=== PATIENT | male | born 1970 | race Caucasian/White ===

== ENCOUNTER 2019-01-03 08:40 | Emergency (ER) | payer SELFPAY ==
[2019-01-03] MEDS ORDERED: LIDOCAINE 1% MPF 5 ML VIAL ONE (09:24)
--- NOTE | 2019-01-03 10:01 | ER ---
Nurse's Notes [facility] Name: Cory Yarbrough Age: 48 yrs Sex: Male : 1970 Arrival Date: 01/03/2019 Time: 08:43 Bed 17 Private MD: Diagnosis: Hand Laceration Presentation: 01/03 09:01 Presenting complaint: Presenting complaint: Patient states: pocket knife slipped, iw punctured left hand in spacing between thumb and finger. 09:02 Transition of care: patient was not received from another setting of care. Complicating iw Factors: There are no complicating factors for this patient. Onset of symptoms was January 03, 2019. Risk Assessment: Do you want to hurt yourself or someone else? Patient reports no desire to harm self or others. Initial Sepsis Screen: Does the patient meet any 2 criteria? No. Patient's initial sepsis screen is negative. Does the patient have a suspected source of infection? No. Patient's initial sepsis screen is negative. Care prior to arrival: None. 09:02 Method Of Arrival: Ambulatory iw 09:02 Acuity: LETY 4 iw Historical: - Allergies: 09:04 Epinephrine; iw - Home Meds: 09:04 None [Active]; iw - PMHx: 09:04 None; iw - PSHx: 09:04 left hand; leg surgery; iw - Immunization history:: Adult Immunizations up to date, Last tetanus immunization: < 5 years ago. - Social history:: Smoking status: Patient uses tobacco products. - Ebola Screening: : Patient negative for fever greater than or equal to 101.5 degrees Fahrenheit, and additional compatible Ebola Virus Disease symptoms Patient denies exposure to infectious person Patient denies travel to an Ebola-affected area in the 21 days before illness onset No symptoms or risks identified at this time. Screenin:11 Abuse screen: Denies threats or abuse. Nutritional screening: No deficits noted. em Tuberculosis screening: No symptoms or risk factors identified. Fall Risk None identified. Assessment: 09:12 General: Appears in no apparent distress. comfortable, Behavior is calm, cooperative, em Denies fever. Pain: Complains of pain in Left first web space Pain currently is 3 out of 10 on a pain scale. Neuro: Level of Consciousness is awake, alert, obeys commands, Oriented to person, place, time, situation, Appropriate for age. Cardiovascular: Capillary refill < 3 seconds Patient's skin is warm and dry. Respiratory: Airway is patent Respiratory effort is even, unlabored, Respiratory pattern is regular, symmetrical. Derm: Skin is intact, is healthy with good turgor, Skin is pink, warm \T\ dry. Musculoskeletal: Circulation, motion, and sensation intact. Capillary refill < 3 seconds, Range of motion: intact in all extremities. Injury Description: Laceration sustained to Left first web space is clean, jagged, 0.5 to 2.5 cm long, not bleeding, was sustained 30-60 minutes ago. is bleeding a small amount. 10:06 Reassessment: PT D/C HOME AMBULATORY, DX WITH HAND LACERATION. bp Vital Signs: 09:05 BP 158 / 98; Pulse 84; Resp 16; Temp 98.3; Pulse Ox 100% on R/A; Weight 117.48 kg; iw Height 6 ft. 2 in. (187.96 cm); Pain 3/10; 09:05 Body Mass Index 33.25 (117.48 kg, 187.96 cm) iw ED Course: 08:43 Patient arrived in ED. mr 09:03 Lc Pinto LVN is Primary Nurse. em 09:04 Triage completed. iw 09:05 Arm band placed on. iw 09:11 Patient has correct armband on for positive identification. Bed in low position. Call em light in reach. Side rails up X2. 09:16 Ward Rayo PA is PHCP. [facility] 09:16 John Delaney MD is Attending Physician. jm 09:30 Assist provider with laceration repair on left hand that was 2.5 cm. or less using bp sutures. Set up tray. Performed by Ward BELLAMY Dressed with Neosporin, Patient tolerated well. 10:05 Patient did not have IV access during this emergency room visit. bp Administered Medications: 09:50 Drug: Lidocaine (1 %) 5 ml Volume: 20 ml; Route: Infiltration; em Outcome: 09:59 Discharge ordered by . jmm 10:06 Discharged to home ambulatory. bp 10:06 Condition: stable 10:06 Discharge instructions given to patient, Instructed on discharge instructions, follow up and referral plans. wound care, Demonstrated understanding of instructions, follow-up care, wound care. 10:07 Patient left the ED. bp Signatures: Ward Rayo PA PA [facility] Aguilar, Brandi mr Blair, Lc, FORESTRY BIOLOGY SPECIALIST FORESTRY BIOLOGY SPECIALIST Alice Orozco RN RN Henrry Joyce RN RN bp Corrections: (The following items were deleted from the chart) 09:04 09:01 Presenting complaint: [facility]
--- NOTE | 2019-01-03 10:01 | EDPHYS ---
Physician Documentation [facility] Name: Cory Yarbrough Age: 48 yrs Sex: Male : 1970 Arrival Date: 01/03/2019 Time: 08:43 Bed 17 Private MD: ED Physician John Delaney HPI: 01/03 09:24 This 48 yrs old Male presents to ER via Ambulatory with complaints of jmm Laceration To Hand. 09:24 The patient has a laceration related to: a puncture wound occurred at home. Onset: The jmm symptoms/episode began/occurred acutely, just prior to arrival. This is a 48 year old male with no chronic medical conditions that presents to the ED with complaints of left hand pain after accidently stabbing his left hand while cutting a wire. Denies other injury. Tetanus is not UTD. Historical: - Allergies: 09:04 Epinephrine; iw - Home Meds: 09:04 None [Active]; iw - PMHx: 09:04 None; iw - PSHx: 09:04 left hand; leg surgery; iw - Immunization history:: Adult Immunizations up to date, Last tetanus immunization: < 5 years ago. - Social history:: Smoking status: Patient uses tobacco products. - Ebola Screening: : Patient negative for fever greater than or equal to 101.5 degrees Fahrenheit, and additional compatible Ebola Virus Disease symptoms Patient denies exposure to infectious person Patient denies travel to an Ebola-affected area in the 21 days before illness onset No symptoms or risks identified at this time. ROS: 09:24 Constitutional: Negative for fever, chills, and weight loss, Cardiovascular: Negative jmm for chest pain, palpitations, and edema, Respiratory: Negative for shortness of breath, cough, wheezing, and pleuritic chest pain. 09:24 MS/extremity: Positive for 09:24 All other systems are negative. Exam: 09:25 Constitutional: This is a well developed, well nourished patient who is awake, alert, jmm and in no acute distress. Head/Face: atraumatic. Eyes: EOMI, no conjunctival erythema appreciated ENT: Moist Mucus Membranes Neck: Trachea midline, Supple Chest/axilla: Normal chest wall appearance and motion. Cardiovascular: Regular rate and rhythm. No edema appreciated Respiratory: Normal respirations, no respiratory distress appreciated Abdomen/GI: Non distended, soft Back: Normal ROM 09:25 Musculoskeletal/extremity: FROM appreciated to the left hand against resistence. [facility] 09:25 Skin: 1.5 cm laceration noted to the 1st web space of the dorsum of the left hand. 09:25 Neuro: Orientation: is normal, Mentation: is normal, Memory: is normal. 09:25 Psych: Behavior/mood is pleasant, cooperative. Vital Signs: 09:05 BP 158 / 98; Pulse 84; Resp 16; Temp 98.3; Pulse Ox 100% on R/A; Weight 117.48 kg; iw Height 6 ft. 2 in. (187.96 cm); Pain 3/10; 09:05 Body Mass Index 33.25 (117.48 kg, 187.96 cm) iw Laceration: 09:58 Wound Repair of 2cm ( 0.8in ) subcutaneous laceration to Left first web space. Distal jmm neuro/vascular/tendon intact. Anesthesia: Local anesthetic administered with 2 mls of 1% lidocaine. Wound prep: Simple cleansing with betadine by me. Skin closed with 3 4-0 Prolene using simple sutures and sterile technique. Patient tolerated well. MDM: 09:24 Patient medically screened. [facility] 09:58 Data reviewed: vital signs, nurses notes. Counseling: I had a detailed discussion with kristel the patient and/or guardian regarding: the historical points, exam findings, and any diagnostic results supporting the discharge/admit diagnosis, the need for outpatient follow up, to return to the emergency department if symptoms worsen or persist or if there are any questions or concerns that arise at home. ED course: Patient given wound infection return precautions. . Administered Medications: 09:50 Drug: Lidocaine (1 %) 5 ml Volume: 20 ml; Route: Infiltration; em Disposition: 16:38 Co-signature as Attending Physician, John Delaney MD I agree with the assessment and kdr plan of care. Disposition: 01/03/19 09:59 Discharged to Home. Impression: Hand Laceration. - Condition is Stable. - Discharge Instructions: Laceration Care, Adult. - Medication Reconciliation Form, Thank You Letter, Antibiotic Education, Prescription Opioid Use form. - Follow up: Private Physician; When: 1 week; Reason: Recheck today's complaints, Continuance of care, Staple/Suture removal, Re-evaluation by your physician. Signatures: John Delaney MD MD kdr Mickail, Joel, PA PA russm Lc Pinto, ONCOLOGY ADMIN ONCOLOGY ADMIN em Alice Serrato, MARTIN RN iw Henrry Shea, MARTIN RN bp Corrections: (The following items were deleted from the chart) 10:07 09:59 01/03/2019 09:59 Discharged to Home. Impression: Hand Laceration. Condition is bp Stable. Forms are Medication Reconciliation Form, Thank You Letter, Antibiotic Education, Prescription Opioid Use. Follow up: Private Physician; When: 1 week; Reason: Recheck today's complaints, Continuance of care, Staple/Suture removal, Re-evaluation by your physician. simi
[2019-01-03 10:13] VITALS: BP 158/98; TEMP 98.3; O2SAT 100
== END 2019-01-03 10:07 | disposition home or self-care (01) ==
LOC: ER 08:40
PROC: 0JQK0ZZ Repair Left Hand Subcutaneous Tissue and Fascia, Open Approach (ICD-10-PCS; principal; 2019-01-03)
DX: S61.412A Laceration without foreign body of left hand, initial encounter (principal); W45.8XXA Other foreign body or object entering through skin, initial encounter; Y93.89 Activity, other specified; Y92.009 Unspecified place in unspecified non-institutional (private) residence as the place of occurrence of the external cause; Z88.8 Allergy status to other drugs, medicaments and biological substances; Z72.0 Tobacco use
CPT/HCPCS: 99283

== ENCOUNTER 2020-02-23 15:25 | Emergency (ER) | payer OTHER, SELFPAY ==
--- NOTE | 2020-02-23 17:23 | RAD REPORT ---
EXAM DESCRIPTION: Ambrosio Single View02/23/2020 5:05 pm CLINICAL HISTORY: Chest pain COMPARISON: none FINDINGS: The lungs appear clear of acute infiltrate. The heart is normal size IMPRESSION: No acute abnormalities displayed
[2020-02-23] MEDS ORDERED: ASPIRIN 81 MG CHEWABLE TABLET ONE (17:28)
[2020-02-23] MEDS ORDERED: METOPROLOL TAR 50 MG TAB ONE (17:29)
[2020-02-23] MEDS ORDERED: lisinopriL 10 MG TAB ONE ×2 (17:29→18:58)
[2020-02-23 17:44] LABS: Basophils % 0.8 % (0-1.3); Hematocrit 46.7 % (39.6-49.0); Lymphocytes % 25.7 % (15.3-44.8); MPV 7.8 fL (7.6-11.3); RBC Red Blood Cell Count 5.35 M/uL (4.33-5.43)
[2020-02-23 17:47] LABS: Protime INR 0.91
[2020-02-23 17:57] LABS: Urine Blood 2+ (NEG); Urine Glucose NEGATIVE (NEG); Urine Protein NEGATIVE (NEG); Urine Specific Gravity 1.025 (1.005-1.030)
[2020-02-23 18:07] LABS: ALT/SGPT 31 U/L (12-78); AST/SGOT 23 U/L (15-37); Albumin 4.2 g/dL (3.4-5.0); Alkaline Phosphatase 99 U/L (45-117); BUN Blood Urea Nitrogen 17 mg/dL (7-18); Bicarbonate 28 mmol/L (21-32); Bilirubin Direct 0.1 mg/dL (0-0.2); Bilirubin Total 0.5 mg/dL (0.2-1.0); Glucose Level 76 mg/dL (74-106); Magnesium 2.3 mg/dL (1.8-2.4); NT PRO-BNP 63 pg/mL (<125); Protein, Total 8.4 g/dL (6.4-8.2); Sodium Level 139 mmol/L (136-145); Troponin (Emerg Dept Use Only) < 0.02 ng/mL (0.0-0.045)
--- NOTE | 2020-02-23 18:22 | EDPHYS ---
Physician Documentation [facility] Name: Cory Yarbrough Age: 49 yrs Sex: Male : 1970 Arrival Date: 02/23/2020 Time: 15:27 Bed 23 Private MD: FABY Physician Bobby Lemus HPI: 02/22 16:47 This 49 yrs old Male presents to ER via Ambulatory with complaints of Chest giancarlo Pain, High Blood Pressure. 16:47 The patient or guardian reports chest pain that is located primarily in the substernal giancarlo area, anterior chest wall, bilaterally. Onset: just prior to arrival, yesterday. The pain does not radiate. Associated signs and symptoms: The patient has no apparent associated signs or symptoms. The chest pain is described as a pressure. Modifying factors: The symptoms are alleviated by nothing. the symptoms are aggravated by nothing. Severity of pain: At its worst the pain was mild in the emergency department the pain has resolved. The patient has experienced similar episodes in the past, several times. Historical: - Allergies: 15:30 Epinephrine; ss - Home Meds: 15:30 None [Active]; ss - PMHx: 15:30 "cardiac events"; ss - PSHx: 15:30 left hand; leg surgery; ss - Immunization history:: Adult Immunizations up to date. - Social history:: Smoking status: Patient reports the use of cigarette tobacco products, smokes one pack cigarettes per day. - Family history:: not pertinent. ROS: 16:47 Constitutional: Negative for fever, chills, and weight loss, Eyes: Negative for injury, giancarlo pain, redness, and discharge, ENT: Negative for injury, pain, and discharge, Neck: Negative for injury, pain, and swelling, Cardiovascular: Negative for chest pain, palpitations, and edema, Respiratory: Negative for shortness of breath, cough, wheezing, and pleuritic chest pain, Abdomen/GI: Negative for abdominal pain, nausea, vomiting, diarrhea, and constipation, Back: Negative for injury and pain, : Negative for injury, bleeding, discharge, and swelling, MS/Extremity: Negative for injury and deformity, Skin: Negative for injury, rash, and discoloration, Neuro: Negative for headache, weakness, numbness, tingling, and seizure, Psych: Negative for depression, anxiety, suicide ideation, homicidal ideation, and hallucinations, Allergy/Immunology: Negative for hives, rash, and allergies, Endocrine: Negative for neck swelling, polydipsia, polyuria, polyphagia, and marked weight changes, Hematologic/Lymphatic: Negative for swollen nodes, abnormal bleeding, and unusual bruising. Exam: 16:47 Constitutional: This is a well developed, well nourished patient who is awake, alert, giancarlo and in no acute distress. Head/Face: Normocephalic, atraumatic. Eyes: Pupils equal round and reactive to light, extra-ocular motions intact. Lids and lashes normal. Conjunctiva and sclera are non-icteric and not injected. Cornea within normal limits. Periorbital areas with no swelling, redness, or edema. ENT: Nares patent. No nasal discharge, no septal abnormalities noted. Tympanic membranes are normal and external auditory canals are clear. Oropharynx with no redness, swelling, or masses, exudates, or evidence of obstruction, uvula midline. Mucous membranes moist. Neck: Trachea midline, no thyromegaly or masses palpated, and no cervical lymphadenopathy. Supple, full range of motion without nuchal rigidity, or vertebral point tenderness. No Meningismus. Chest/axilla: Normal chest wall appearance and motion. Nontender with no deformity. No lesions are appreciated. Cardiovascular: Regular rate and rhythm with a normal S1 and S2. No gallops, murmurs, or rubs. Normal PMI, no JVD. No pulse deficits. Respiratory: Lungs have equal breath sounds bilaterally, clear to auscultation and percussion. No rales, rhonchi or wheezes noted. No increased work of breathing, no retractions or nasal flaring. Abdomen/GI: Soft, non-tender, with normal bowel sounds. No distension or tympany. No guarding or rebound. No evidence of tenderness throughout. Back: No spinal tenderness. No costovertebral tenderness. Full range of motion. Male : Normal genitalia with no discharge or lesions. Skin: Warm, dry with normal turgor. Normal color with no rashes, no lesions, and no evidence of cellulitis. MS/ Extremity: Pulses equal, no cyanosis. Neurovascular intact. Full, normal range of motion. Neuro: Awake and alert, GCS 15, oriented to person, place, time, and situation. Cranial nerves II-XII grossly intact. Motor strength 5/5 in all extremities. Sensory grossly intact. Cerebellar exam normal. Normal gait. Psych: Awake, alert, with orientation to person, place and time. Behavior, mood, and affect are within normal limits. 16:47 Musculoskeletal/extremity: DVT Exam: No signs of deep vein thrombosis. no pain, no swelling, no tenderness, negative Homans' sign noted on exam, no appreciated bluish discoloration, no erythema, no increased warmth. 16:56 ECG was reviewed by the Attending Physician. giancarlo Vital Signs: 15:30 BP 174 / 138; Pulse 72; Resp 18; Temp 97.8; Pulse Ox 100% on R/A; Height 6 ft. 2 in. ss (187.96 cm); Pain 6/10; 15:36 BP 170 / 113; ss 17:20 BP 164 / 117; Pulse 71; Resp 16; Pulse Ox 100% on R/A; vg1 18:00 BP 141 / 110; Pulse 60; Resp 16; Pulse Ox 99% on R/A; vg1 MDM: 16:41 Patient medically screened. giancarlo 16:51 Differential diagnosis: abnormal EKG, acute myocardial infarction, chest wall pain, giancarlo costochondritis, pleurisy, pneumonia, stable angina, unstable angina. HEART Score: History: Slightly Suspicious (0), ECG: Normal (0), Age: > 45 and < 65 years (1), Risk Factors: > or = 3 Risk factors for atherosclerotic disease (2), [Hypercholesterolemia] [Hypertension] [Active Smoker] [+ Family HX] [Obesity] Troponin: < or = 1 x Normal Limit (0). The patient was given aspirin in the Emergency Department. The patient's deep vein thrombosis risk score was calculated as follows: Total Score: 0. This patient was found to be at low risk for a deep vein thrombosis by using the Well's assessment criteria. The patient's pulmonary embolism risk score was calculated as follows: Total Score: 0-2 points. This patient was found to be at low risk for a pulmonary embolism by using the Well's assessment criteria. ANKIT Risk Score: 1 - Three or more CAD risk factors, 1- Known CAD, TOTAL SCORE = 2. Data reviewed: vital signs, nurses notes, lab test result(s), EKG, radiologic studies, plain films. Data interpreted: frame stripper and crusher: rate is 72 beats/min, rhythm is regular, Pulse oximetry: on room air is 100 %. Test interpretation: by ED physician or midlevel provider: ECG, plain radiologic studies. 02/22 16:47 Order name: Basic Metabolic Panel; Complete Time: 18:12 [facility] 02/22 16:47 Order name: CBC with Diff; Complete Time: 18:12 [facility] 02/22 16:47 Order name: LFT's; Complete Time: 18:12 [facility] 02/22 16:47 Order name: Magnesium; Complete Time: 18:12 [facility] 02/22 16:47 Order name: NT PRO-BNP; Complete Time: 18:12 [facility] 02/22 16:47 Order name: PT-INR; Complete Time: 18:12 [facility] 02/22 16:47 Order name: Troponin (emerg Dept Use Only); Complete Time: 18:12 [facility] 02/22 16:47 Order name: XRAY Chest (1 view); Complete Time: 17:29 [facility] 02/22 17:54 Order name: Urine Dipstick--Ancillary (enter results); Complete Time: 18:12 02/22 15:35 Order name: EKG; Complete Time: 15:36 02/22 15:35 Order name: EKG - Nurse/Tech; Complete Time: 15:35 02/22 16:47 Order name: Cardiac monitoring; Complete Time: 17:45 [facility] 02/22 16:47 Order name: IV Saline Lock; Complete Time: 17:45 [facility] 02/22 16:47 Order name: Labs collected and sent; Complete Time: 17:45 [facility] 02/22 16:47 Order name: O2 Per Protocol; Complete Time: 17:02 [facility] 02/22 16:47 Order name: O2 Sat Monitoring; Complete Time: 17:02 [facility] 02/22 16:47 Order name: Urine Dipstick-Ancillary (obtain specimen); Complete Time: 17:45 [facility] EC:56 Rate is 71 beats/min. Rhythm is regular. QRS [place] is Normal. MI interval is normal. QRS giancarlo interval is normal. QT interval is normal. No Q waves. T waves are Normal. No ST changes noted. Clinical impression: Normal ECG and No evidence of ischemia. Interpreted by me. Reviewed by me. Administered Medications: 17:25 Drug: Lopressor (metoprolol TARTRATE) 50 mg Route: PO; vg1 18:56 Follow up: Response: No adverse reaction; Marked relief of symptoms vg1 17:25 Drug: Aspirin Chewable Tablet 324 mg Route: PO; vg1 18:56 Follow up: Response: No adverse reaction vg1 17:25 Drug: Lisinopril 10 mg Route: PO; vg1 18:56 Follow up: Response: Marked relief of symptoms vg1 18:49 CANCELLED (HR 55. Provider notified.): Lopressor 5 mg IVP once; Hold for SBP <100 or HR vg1 <60. 18:55 Drug: Lisinopril 10 mg Route: PO; vg1 18:55 Follow up: Response: Medication administered at discharge. vg1 Disposition: 02/23/20 18:20 Discharged to Home. Impression: Chest pain, unspecified, Essential (primary) hypertension, Tobacco abuse counseling, Tobacco use. - Condition is Stable. - Discharge Instructions: Hypertension, Steps to Quit Smoking, Smoking Hazards, Nonspecific Chest Pain, [id number], Hypertension, [id number], Aspirin and Your Heart, Managing Your Hypertension. - Prescriptions for Lopressor 50 mg Oral Tablet - take 1 tablet by ORAL route every 12 hours; 30 tablet. Lisinopril 20 mg Oral Tablet - take 1 tablet by ORAL route once daily; 20 tablet. - Medication Reconciliation Form, Thank You Letter, Antibiotic Education, Prescription Opioid Use form. - Follow up: Private Physician; When: 2 - 3 days; Reason: Recheck today's complaints, Continuance of care, Re-evaluation by your physician. Follow up: Jakub Acevedo; When: 2 - 3 days; Reason: Recheck today's complaints, Re-evaluation by your physician. - Problem is new. - Symptoms have improved. Signatures: Dispatcher [employer] [facility] Bobby Lemus MD MD cha Smirch, Shelby, RN RN July Odom RN RN vg1 Corrections: (The following items were deleted from the chart) 18:49 18:13 Lopressor 5 mg IVP once; Hold for SBP <100 or HR <60. ordered. giancarlo vg1 18:49 18:49 Lopressor 5 mg IVP once; Hold for SBP <100 or HR <60. ordered. vg1 vg1 18:57 18:20 02/23/2020 18:20 Discharged to Home. Impression: Chest pain, unspecified; vg1 Essential (primary) hypertension; Tobacco abuse counseling; Tobacco use. Condition is Stable. Discharge Instructions: Hypertension, Steps to Quit Smoking, Smoking Hazards, Nonspecific Chest Pain, [id number], Hypertension, [id number], Aspirin and Your Heart, Managing Your Hypertension. Prescriptions for Lopressor 50 mg Oral Tablet - take 1 tablet by ORAL route every 12 hours; 30 tablet, Lisinopril 20 mg Oral Tablet - take 1 tablet by ORAL route once daily; 20 tablet. and Forms are Medication Reconciliation Form, Thank You Letter, Antibiotic Education, Prescription Opioid Use. Follow up: Private Physician; When: 2 - 3 days; Reason: Recheck today's complaints, Continuance of care, Re-evaluation by your physician. Follow up: Jakub Acevedo; When: 2 - 3 days; Reason: Recheck today's complaints, Re-evaluation by your physician. Problem is new. Symptoms have improved. giancarlo
--- NOTE | 2020-02-23 18:22 | ER ---
Nurse's Notes [facility] Name: Cory Yarbrough Age: 49 yrs Sex: Male : 1970 Arrival Date: 02/23/2020 Time: 15:27 Bed 23 Private MD: Diagnosis: Chest pain, unspecified;Essential (primary) hypertension;Tobacco abuse counseling;Tobacco use Presentation: 02/22 15:28 Chief complaint: Patient states: "I was in my doctor's office and my blood pressure was ss high so they wanted me to come over because of the chest pains I've been having." Pt c/o CP that began a week ago. Coronavirus screen: Client denies travel out of the [place] in the last 14 days. Ebola Screen: Patient denies exposure to infectious person. Patient denies travel to an Ebola-affected area in the 21 days before illness onset. Initial Sepsis Screen: Does the patient meet any 2 criteria? No. Patient's initial sepsis screen is negative. Does the patient have a suspected source of infection? No. Patient's initial sepsis screen is negative. Risk Assessment: Do you want to hurt yourself or someone else? Patient reports no desire to harm self or others. Onset of symptoms was February 16, 2020. 15:28 Method Of Arrival: Ambulatory 15:28 Acuity: LETY 3 ss Historical: - Allergies: 15:30 Epinephrine; ss - Home Meds: 15:30 None [Active]; ss - PMHx: 15:30 "cardiac events"; ss - PSHx: 15:30 left hand; leg surgery; ss - Immunization history:: Adult Immunizations up to date. - Social history:: Smoking status: Patient reports the use of cigarette tobacco products, smokes one pack cigarettes per day. - Family history:: not pertinent. Screenin:15 Abuse screen: Denies threats or abuse. Nutritional screening: No deficits noted. vg1 Tuberculosis screening: No symptoms or risk factors identified. Fall Risk None identified. Assessment: 17:15 General: Appears in no apparent distress. comfortable, Behavior is calm, cooperative. vg1 17:15 Pain: Complains of pain in chest and head Pain radiates to back Pain currently is 4 out vg1 of 10 on a pain scale. Pain began about a week. Neuro: Level of Consciousness is awake, alert, obeys commands, Oriented to person, place, time, situation. Cardiovascular: Heart tones S1 S2 Pulses are palpable in right radial artery and left radial artery Chest pain Patient states chest pain is 4/10 and states it feels more like pressure.. Respiratory: Airway is patent Respiratory effort is even, unlabored, Respiratory pattern is regular, symmetrical. GI: No signs and/or symptoms were reported involving the gastrointestinal system. : No signs and/or symptoms were reported regarding the genitourinary system. EENT: No signs and/or symptoms were reported regarding the EENT system. Derm: Skin is intact, is healthy with good turgor. Musculoskeletal: Circulation, motion, and sensation intact. 18:15 Reassessment: Patient appears in no apparent distress at this time. Patient and/or vg1 family updated on plan of care and expected duration. Pain level reassessed. Patient is alert, oriented x 3, equal unlabored respirations, skin warm/dry/pink. Patient denies pain at this time. Patient states feeling better. Vital Signs: 15:30 BP 174 / 138; Pulse 72; Resp 18; Temp 97.8; Pulse Ox 100% on R/A; Height 6 ft. 2 in. ss (187.96 cm); Pain 6/10; 15:36 BP 170 / 113; ss 17:20 BP 164 / 117; Pulse 71; Resp 16; Pulse Ox 100% on R/A; vg1 18:00 BP 141 / 110; Pulse 60; Resp 16; Pulse Ox 99% on R/A; vg1 ED Course: 15:27 Patient arrived in ED. ag5 15:29 Triage completed. ss 15:30 Arm band placed on right wrist. ss 16:41 Bobby Lemus MD is Attending Physician. giancarlo 16:43 July Stephenson, MARTIN is Primary Nurse. vg1 17:06 XRAY Chest (1 view) In Process Unspecified. EDMS 17:15 Patient has correct armband on for positive identification. Bed in low position. Call vg1 light in reach. Side rails up X 1. residential monitor on. Pulse ox on. NIBP on. 17:15 Patient maintains SpO2 saturation greater than 95% on room air. vg1 17:20 Inserted saline lock: 20 gauge in right antecubital area, using aseptic technique. vg1 Blood collected. Flushed right antecubital with 5 ml normal saline. 17:20 Initial lab(s) drawn, by or, sent to lab. vg1 17:35 Urine collected: clean catch specimen, clear, collin colored. jp3 18:20 Jakub Acevedo MD is Referral Physician. [facility] 18:50 No provider procedures requiring assistance completed. vg1 18:50 IV discontinued, intact, bleeding controlled, No redness/swelling at site. Pressure vg1 dressing applied. Administered Medications: 17:25 Drug: Lopressor (metoprolol TARTRATE) 50 mg Route: PO; vg1 18:56 Follow up: Response: No adverse reaction; Marked relief of symptoms vg1 17:25 Drug: Aspirin Chewable Tablet 324 mg Route: PO; vg1 18:56 Follow up: Response: No adverse reaction vg1 17:25 Drug: Lisinopril 10 mg Route: PO; vg1 18:56 Follow up: Response: Marked relief of symptoms vg1 18:49 CANCELLED (HR 55. Provider notified.): Lopressor 5 mg IVP once; Hold for SBP <100 or HR vg1 <60. 18:55 Drug: Lisinopril 10 mg Route: PO; vg1 18:55 Follow up: Response: Medication administered at discharge. vg1 Outcome: 18:20 Discharge ordered by . giancarlo 18:50 Discharged to home ambulatory. vg1 18:50 Condition: stable 18:50 Discharge instructions given to patient, Instructed on discharge instructions, follow up and referral plans. medication usage, Demonstrated understanding of instructions, follow-up care, medications, Prescriptions given X 2. 18:57 Patient left the ED. vg1 Signatures: Dispatcher [employer] EDUT Bobby Lemus MD MD cha Smirch, Shelby, RN RN Arjun Hubbard jp3 Cj Donahue Victoria, RN RN vg1
[2020-02-23 19:04] VITALS: TEMP 97.8
[2020-02-23 19:08] VITALS: BP 141/110; O2SAT 99
--- NOTE | 2020-02-24 16:11 | EKG ---
Test Date: 2020-02-23 Test Time: 15:36:59 Heel Seat F[employer] Machine: NAEEM MEASUREMENT RESULTS: Intervals: Rate: 71 NE: 182 QRSD: 96 QT: 370 QTc: 402 [place]: P: 73 NE: 182 QRS: 46 T: 29 INTERPRETIVE STATEMENTS: Normal sinus rhythm Normal ECG No previous ECG available for comparison Electronically Signed On 02-24-20 16:08:47 [employer] by Jakub Acevedo
== END 2020-02-23 18:57 | disposition home or self-care (01) ==
LOC: ER 15:25
DX: I10 Essential (primary) hypertension (principal); Z72.0 Tobacco use; Z71.6 Tobacco abuse counseling; Z88.8 Allergy status to other drugs, medicaments and biological substances
CPT/HCPCS: 36415; 71045; 80048; 80076; 81003; 83735; 83880; 84484; 85025; 85610; 93005; 99285